=== PATIENT | female | born 1940 | race Caucasian/White ===

== ENCOUNTER 2019-07-01 23:39 | Inpatient (IN) | payer OTHER ==
[~2019-07-01] VITALS: Ht 165.1 cm; Wt 91.4 kg
[2019-07-02 00:15] LABS: URINE BILIRUBIN 1+ (Negative); URINE BLOOD NEGATIVE (Negative); URINE CLARITY CLEAR; URINE COLOR YELLOW; URINE GLUCOSE-RANDOM* NEGATIVE (Negative); URINE KETONES TRACE (Negative); URINE NITRITE-REFLEX NEGATIVE (Negative); URINE PROTEIN (DIPSTICK) TRACE (Negative); URINE SPECIFIC GRAVITY >= 1.030 (1.005-1.035); URINE UROBILINOGEN 0.2 E.U./dl (0.2-1.0)
[2019-07-02 00:17] LABS: URINE LEUKOCYTES-REFLEX 1+ (Negative)
[2019-07-02 00:18] LABS: ABSOLUTE NEUTROPHILS 4.7 thou/uL (1.4-8.2); BASOPHILS 0.7 % (0.0-2.0); EOSINOPHILS 1.1 % (0.0-3.0); HEMATOCRIT 43.9 % (37.0-47.0); HEMOGLOBIN 14.4 gm/dL (12.0-15.0); LYMPHOCYTES 22.4 % (24.0-44.0); MCH 30.7 pg (26.0-34.0); MCHC 32.9 g/dL (28.0-37.0); MCV 93.3 fL (80.0-100.0); PLATELET COUNT 251 thou/uL (150-400); POLYS 64.8 % (36.0-66.0); RBC 4.71 mil/uL (4.20-5.00); RDW 14.4 % (10.5-14.5); WBC 7.2 thou/uL (4.0-11.0)
[2019-07-02 00:23] LABS: CALCIUM 9.2 mg/dL (8.5-10.1); CREATININE 1.2 mg/dL (0.6-1.0); POTASSIUM 3.1 mmol/L (3.5-5.1)
[2019-07-02 00:29] LABS: ALBUMIN 3.9 g/dL (3.4-5.0); TOTAL BILIRUBIN 0.7 mg/dL (<0.1-1.0); TOTAL PROTEIN 7.6 g/dL (6.4-8.2)
[2019-07-02 00:33] LABS: SQUAMOUS 4-10 Moderate /LPF (0-3)
[2019-07-02 00:34] LABS: CALCIUM OXALATE 0-3 Few /LPF (None Seen); HYALINE CASTS 4-10 Moderate /LPF (None Seen); MUCUS 4-6 Moderate strn/LPF (None Seen); URINE RBC 0-2 Rare /HPF (0-2); URINE WBC-REFLEX 6-15 Few /HPF (0-5); WBC CLUMPS Few (None Seen)
[2019-07-02 02:30] VITALS: BP 125/99
[2019-07-02 02:37] VITALS: BP 156/92
[2019-07-02 03:00] VITALS: BP 125/99
[2019-07-02] MEDS ORDERED: LISINOPRIL2.5 MG PO (03:11)
[2019-07-02] MEDS ORDERED: NORVASC 2.5 MG2.5 M1 PO (03:14)
[2019-07-02] MEDS ORDERED: ARICEPT10 M1 PO (03:14)
[2019-07-02] MEDS ORDERED: VITAMIN D31 ML PO (03:16)
[2019-07-02] MEDS ORDERED: FOSAMAX 70 MG T70 MG PO (03:17)
[2019-07-02] MEDS ORDERED: ARIMIDEX1 MG PO (03:18)
[2019-07-02] MEDS ORDERED: MIRTAZAPINE7.5 MG PO (03:19)
[2019-07-02] MEDS ORDERED: TRAMADOL 50 MG50 MG PO (03:21)
[2019-07-02] MEDS ORDERED: LIPITOR10 MG PO (03:22)
[2019-07-02 07:30] VITALS: BP 136/85
--- NOTE | 2019-07-02 08:02 | EKG ---
[facility] [place] [address] ELECTROCARDIOGRAM REPORT Name: KAREN ALMODOVAR Room #: [facility] ADM IN M.R.#: [id number] Admission: 07/02/19 Attend Phys: Lambert Luis DO Discharge: Date of : 42 Report #: [id number] THIS REPORT FOR: cc: JOE MASON MD Physician not on staff Carlos Rivas MD [facility] THIS REPORT FOR: //name// [facility] ED Test Date: 2019-07-02 Test Time: 00:19:27 Pat Name: KAREN ALMODOVAR Department: Room: [facility] Gender: F Production Planner Scheduler: ezio : 1940 Requested By: Ricardo Markham Order Number: [id number] MD: Carlos Rivas Measurements Intervals [place] Rate: 82 P: 74 [place]: 149 QRS: 33 QRSD: 86 T: 38 QT: 386 QTc: 451 Interpretive Statements Sinus rhythm Low voltage, precordial leads Abnormal R-wave progression, early transition Nonspecific ST and T wave abnormality No previous ECG available for comparison Electronically Signed On 07-02-2019 8:00:37 CDT by Carlos Rivas [email or web address] <ELECTRONICALLY SIGNED> By: Carlos Rivas MD, [facility] 07/02/19 0800 0019 0019 Carlos Rivas MD, [facility] /EPI
[2019-07-02 12:11] LABS: TSH 0.746 uIU/mL (0.358-3.740)
[2019-07-02 20:05] VITALS: BP 109/65
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
[2019-07-03 06:47] VITALS: BP 109/65
[2019-07-03 07:26] VITALS: BP 141/72
[2019-07-03 08:30] VITALS: BP 141/72
[2019-07-03 19:15] VITALS: BP 111/68
[2019-07-04 05:06] VITALS: BP 111/68
[2019-07-04 08:00] VITALS: BP 127/78
[2019-07-04 19:33] VITALS: BP 117/97
[2019-07-05 08:31] VITALS: BP 130/68
[2019-07-05 11:42] VITALS: BP 130/68
[2019-07-05 19:35] VITALS: BP 108/57; BP 112/62
[2019-07-06 07:43] VITALS: BP 145/81
[2019-07-06 09:53] VITALS: BP 145/81
[2019-07-06 19:23] VITALS: BP 124/77
[2019-07-06 19:30] VITALS: BP 124/77
[2019-07-07 07:35] VITALS: BP 129/63
[2019-07-07 09:17] LABS: ABSOLUTE NEUTROPHILS 3.5 thou/uL (1.4-8.2); BASOPHILS 0.8 % (0.0-2.0); EOSINOPHILS 2.4 % (0.0-3.0); HEMATOCRIT 43.6 % (37.0-47.0); HEMOGLOBIN 14.5 gm/dL (12.0-15.0); LYMPHOCYTES 22.3 % (24.0-44.0); MCH 31.2 pg (26.0-34.0); MCHC 33.3 g/dL (28.0-37.0); MCV 93.5 fL (80.0-100.0); MONOCYTES 10.1 % (1.0-8.0); PLATELET COUNT 258 thou/uL (150-400); POLYS 64.4 % (36.0-66.0); RBC 4.66 mil/uL (4.20-5.00); RDW 14.5 % (10.5-14.5); WBC 5.4 thou/uL (4.0-11.0)
[2019-07-07 09:29] LABS: CALCIUM 9.5 mg/dL (8.5-10.1); CREATININE 1.1 mg/dL (0.6-1.0); PHOSPHORUS 3.3 mg/dL (2.5-4.9); POTASSIUM 3.9 mmol/L (3.5-5.1)
[2019-07-07 19:34] VITALS: BP 118/70
[2019-07-08 07:21] VITALS: BP 129/74
[2019-07-08 19:32] VITALS: BP 140/78
[2019-07-09 08:29] VITALS: BP 106/67
[2019-07-09 08:30] VITALS: BP 109/61
[2019-07-09 19:46] VITALS: BP 115/59
[2019-07-10 07:49] VITALS: BP 131/75
[2019-07-10 08:30] VITALS: BP 131/75
[2019-07-10 19:37] VITALS: BP 147/81
[2019-07-10 19:50] VITALS: BP 141/75
[2019-07-11 07:36] VITALS: BP 162/94
[2019-07-11 11:09] VITALS: BP 162/94
[2019-07-11 19:33] VITALS: BP 108/68
[2019-07-12 05:26] LABS: CREATININE 1.2 mg/dL (0.6-1.0); MAGNESIUM 2.2 mg/dL (1.8-2.4); POTASSIUM 4.4 mmol/L (3.5-5.1)
[2019-07-12 06:03] LABS: HEMATOCRIT 39.5 % (37.0-47.0); MCH 30.8 pg (26.0-34.0); MCV 93.4 fL (80.0-100.0); RBC 4.23 mil/uL (4.20-5.00); RDW 14.3 % (10.5-14.5); WBC 5.7 thou/uL (4.0-11.0)
[2019-07-12 07:00] VITALS: BP 118/57
[2019-07-12 09:09] VITALS: BP 118/57
[2019-07-12] MEDS ORDERED: ARIMIDEX PO (09:30)
[2019-07-12] MEDS ORDERED: ATORVASTATIN CA10 MG PO (09:31)
[2019-07-12] MEDS ORDERED: ARICEPT10 MG PO (09:31)
[2019-07-12] MEDS ORDERED: REMERON 30 MG T30 M1 PO (09:32)
[2019-07-12] MEDS ORDERED: NORVASC10 MG PO (09:32)
[2019-07-12] MEDS ORDERED: SEROQUEL 25 MG25 M1 PO (09:33)
[2019-07-12] MEDS ORDERED: NAMENDA 5 MG TAB5 M1 PO ×3 (09:34→09:35)
[2019-07-12] MEDS ORDERED: COLACE 100 MG100 MG PO (09:35)
[2019-07-12] MEDS ORDERED: B-12500 MCG PO (09:36)
[2019-07-12] MEDS ORDERED: PEPCID20 MG PO (09:36)
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
== END 2019-07-12 11:30 | DRG 57 ==
LOC: ER 23:39 → SBH 07-02 01:29 → EROBS 07-02 01:29 → SBH 07-02 02:03
PROVIDERS: Emergency Medicine; Internal Medicine; ADMIT Psychiatry & Neurology Psychiatry
DX: G30.9 Alzheimer's disease, unspecified (principal); F02.81 Dementia in other diseases classified elsewhere, unspecified severity, with behavioral disturbance; I12.0 Hypertensive chronic kidney disease with stage 5 chronic kidney disease or end stage renal disease; N17.9 Acute kidney failure, unspecified; F01.51 Vascular dementia, unspecified severity, with behavioral disturbance; R41.0 Disorientation, unspecified; E78.5 Hyperlipidemia, unspecified; N18.3 Chronic kidney disease, stage 3 (moderate); M54.31 Sciatica, right side; E87.6 Hypokalemia; F41.9 Anxiety disorder, unspecified; Z79.899 Other long term (current) drug therapy; Z66 Do not resuscitate
CPT/HCPCS: 10880